=== PATIENT | male | born 1975 | race Caucasian/White ===

== ENCOUNTER 2017-05-01 06:30 | Day surgery (SDC) | payer SELFPAY ==
[~2017-05-01 06:30] MED LIST: Lactated Ringers 1,000 ML IV SCH; Sodium Chloride 0.9% 10 ML Syringe FLUSH PRN; Sodium Chloride 0.9% 2.5 ML Syringe FLUSH PRN; ceFAZolin 2 GM in Premix Bag 1 BAG IV ONE
[2017-05-01] MEDS ORDERED: ceFAZolin 1 GM Vial ONE (07:08)
[2017-05-01] MEDS ORDERED: fentaNYL 100 MCG/2 ML SDV ONE (07:08)
[2017-05-01] MEDS ORDERED: Midazolam 1 MG/ML 2 ML SDV ONE ×2 (07:08→07:48)
[2017-05-01] MEDS ORDERED: Propofol 200 MG/20 ML SDV ONE (07:09)
[2017-05-01] MEDS ORDERED: Lidocaine 1% 20 ML MDV ONE (07:16)
[2017-05-01] MEDS ORDERED: Bupivacaine 0.5% 30 ML SDV ONE (07:16)
--- NOTE | 2017-05-01 07:31 | PCM.PREANE ---
Preanesthetic Assessment - Anesthesia/Transfusion/Family Hx Anesthesia History: No Prior Anesthesia Family History of Anesthesia Reaction: No Transfusion History: No Prior Transfusion(s) - Review of Systems General: No Symptoms Pulmonary: No Symptoms Cardiovascular: No Symptoms Gastrointestinal: No Symptoms Neurological: No Symptoms Other: Reports: None - Physical Assessment NPO Status Date: 04/30/17 NPO Status Time: 23:30 O2 Sat by Pulse Oximetry: 98 Respiratory Rate: 16 Vital Signs: Last Vital Signs Temp 36.2 C 05/01/17 07:09 Pulse 50 L 05/01/17 07:09 Resp 16 05/01/17 07:09 BP 117/72 05/01/17 07:09 Pulse Ox 98 05/01/17 07:09 Height: 1.91 m Weight: 134.263 kg ASA Class: 2 Mental Status: Alert & Oriented x3 Airway Class: Mallampati = 2 Dentition: Reports: Normal Dentition ROM/Head Extension: Full Lungs: Clear to Auscultation, Normal Respiratory Effort - Allergies Allergies/Adverse Reactions: Allergies Allergy/AdvReac Type Severity Reaction Status Date / Time No Known Allergies Allergy Verified 04/29/17 13:30 - Anesthesia Plan Pre-Op Medication Ordered: None - Acknowledgements Anesthesia Type Planned: MAC Pt an Appropriate Candidate for the Planned Anesthesia: Yes Alternatives and Risks of Anesthesia Discussed w Pt/Guardian: Yes Pt/Guardian Understands and Agrees with Anesthesia Plan: Yes PreAnesthesia Questionnaire HEENT History: Reports: Other (See Below) Other HEENT History: wears contacts Cardiovascular History: Reports: Hypertension, Other (See Below) Other Cardiovascular History: states high BP in the past, has lost weight and no longer has Respiratory History: Reports: Other (See Below) Other Respiratory History: states has lost weight and not longer has sleep apnea Gastrointestinal History: Reports: Other (See Below) Other Gastrointestinal History: occasional heartburn Musculoskeletal History: Reports: Back Pain, Chronic Endocrine/Metabolic History: Reports: Obesity/BMI 30+ Dermatologic History: Reports: Other (See Below) Other Dermatologic History: cyst to posterior neck - Past Surgical History Head Surgeries/Procedures: Reports: None - SUBSTANCE USE Smoking Status *Q: Former Smoker Tobacco Use Within Last Twelve Months: No Recreational Drug Use History: No - HOME MEDS Home Medications: Home Meds . [No Known Home Meds] 04/29/17 [History] - CURRENT (IN HOUSE) MEDS Current Meds: Current Medications Lactated Ringer's (Ringers, Lactated) 1,000 mls @ 125 mls/hr IV ASDIRECTED LINDSAY Last Admin: 05/01/17 07:10 Dose: 125 mls/hr Sodium Chloride (Saline Flush) 10 ml FLUSH ASDIRECTED PRN PRN Reason: Keep Vein Open Sodium Chloride (Saline Flush) 2.5 ml FLUSH ASDIRECTED PRN PRN Reason: Keep Vein Open Discontinued Medications Bupivacaine HCl (Marcaine 0.5%) Confirm Administered Dose 30 ml .ROUTE .STK-MED ONE Stop: 05/01/17 07:17 Cefazolin Sodium (Ancef) Confirm Administered Dose 2 gm .ROUTE .STK-MED ONE Stop: 05/01/17 07:09 Fentanyl (Sublimaze) Confirm Administered Dose 100 mcg .ROUTE .STK-MED ONE Stop: 05/01/17 07:09 Cefazolin Sodium/Dextrose 2 gm (/ Premix) 50 mls @ 100 mls/hr IV ONETIME ONE Stop: 04/30/17 13:09 Lidocaine HCl (Xylocaine 1%) Confirm Administered Dose 20 ml .ROUTE .STK-MED ONE Stop: 05/01/17 07:17 Midazolam HCl (Versed 1 Mg/Ml) Confirm Administered Dose 2 mg .ROUTE .STK-MED ONE Stop: 05/01/17 07:09 Propofol (Diprivan 20 Ml) Confirm Administered Dose 200 mg .ROUTE .STK-MED ONE Stop: 05/01/17 07:10
[2017-05-01] MEDS ORDERED: Lidocaine 2% 5 ML SDV ONE (08:01)
[2017-05-01] MEDS ORDERED: fentaNYL 100 MCG/2 ML SDV IVPUSH PRN (08:06)
[2017-05-01] MEDS ORDERED: Ondansetron 4 MG/2 ML SDV ONE (08:14)
--- NOTE | 2017-05-01 08:23 | PCM.OPNOTE ---
- General Post-Op/Procedure Note Date of Surgery/Procedure: 05/01/17 Operative Procedure(s): Excision posterior neck lesion Findings: 1.5 x 1 x 0.5 cm elliptical incision made over previous site of infection where supposed sebaceous neck cyst. Pre Op Diagnosis: Posterior neck lesion Post-Op Diagnosis: same Anesthesia Technique: Local Primary Surgeon: Diann Gil Condition: Good
--- NOTE | 2017-05-01 08:56 | PCM48HPAN ---
Post Anesthesia Note - EVALUATION WITHIN 48HRS OF ANESTHETIC Vital Signs in Normal Range: Yes Patient Participated in Evaluation: Yes Respiratory Function Stable: Yes Airway Patent: Yes Cardiovascular Function Stable: Yes Hydration Status Stable: Yes Pain Control Satisfactory: Yes Nausea and Vomiting Control Satisfactory: Yes Mental Status Recovered: Yes
--- NOTE | 2017-05-01 08:56 | PCM.POSTAN ---
POST ANESTHESIA ASSESSMENT - MENTAL STATUS Mental Status: Alert, Oriented - RESPIRATORY Respiratory Status: Respiratory Rate WNL, Airway Patent, O2 Saturation Stable - CARDIOVASCULAR CV Status: Pulse Rate WNL, Blood Pressure Stable - GASTROINTESTINAL GI Status: No Symptoms - POST OP HYDRATION Hydration Status: Adequate & Stable
--- NOTE | 2017-05-01 09:42 | OR ---
SURGEON: JAMES SAMUELS MD DATE OF PROCEDURE: 05/01/2017 PREOPERATIVE DIAGNOSIS: Posterior neck lesion. POSTOPERATIVE DIAGNOSIS: Posterior neck lesion. PROCEDURE PERFORMED: Excision of posterior neck lesion. ANESTHESIA: Monitored anesthesia care, local. ESTIMATED BLOOD LOSS: 3 mL. FINDINGS: A 1.5 x 1 x 0.5 cm elliptical piece of skin excised containing a thickened area of tissue consistent with previous ruptured sebaceous cyst. COMPLICATIONS: None. INDICATIONS: The patient is a 41-year-old male, who came to see me in clinic several months ago after developing an inflamed area on the back of his neck. This spontaneously drained purulent material. His history was consistent with that of a sebaceous cyst. The wound initially healed, but then the patient began to note increased swelling around the area. On exam, the patient had a firm nodule in the area of the previous inflammation. The patient would like to have this lesion removed given that it is recurrent. The patient and I discussed excising this and closing it primarily. We discussed the procedure as well as expected perioperative course. We discussed the risks, including bleeding, infection, or damage to surrounding structures. The patient verbalized understanding and wishes to proceed. PROCEDURE IN DETAIL: The patient was brought into the operating room and placed in the left lateral decubitus position. A time-out was completed verifying the patient's name, age, date of , allergies, and procedure to be performed. Monitored anesthesia care was induced. The posterior neck was prepped and draped in usual standard fashion. The area around the posterior neck lesion was anesthetized with 1% lidocaine plain. An elliptical skin incision was made along the skin lines to encompass the lesion. Cautery was used to dissect down to the subcutaneous fat and the lesion was then undermined. A 1.5 x 1 x 0.5 cm piece of skin was removed and sent to pathology labeled as posterior neck lesion. The wound was irrigated with normal saline and cautery used to achieve hemostasis. The skin was then palpated and no further areas of thickening or nodularity were noted. The skin was closed with interrupted 3-0 Vicryl within the subcutaneous space and a running 4-0 Monocryl suture in the subcuticular space. Steri-Strips and sterile dressings were applied. The patient tolerated the procedure well and was taken to PACU in stable condition. ASIF TAYLOR /[id number] MTDShefali
[2017-05-01 12:30] VITALS: BP 126/81
== END 2017-05-01 09:10 | disposition home or self-care (01) ==
LOC: MW.SDS 06:30
PROVIDERS: ATTEND Surgery
DX: L90.5 Scar conditions and fibrosis of skin (principal); L08.89 Other specified local infections of the skin and subcutaneous tissue; G47.33 Obstructive sleep apnea (adult) (pediatric); I10 Essential (primary) hypertension; E66.9 Obesity, unspecified; Z87.891 Personal history of nicotine dependence; Z98.890 Other specified postprocedural states; Z68.36 Body mass index [BMI] 36.0-36.9, adult
CPT/HCPCS: 11422; J0690; J2250; J2405; J3010; J7120; 00300; 88304; J2704

== ENCOUNTER 2017-05-08 11:20 | Emergency (ER) | payer SELFPAY ==
--- NOTE | 2017-05-08 12:02 | EDM.PDOC ---
ED HPI GENERAL MEDICAL PROBLEM - General Chief Complaint: Wound Recheck Stated Complaint: NECK PAIN Time Seen by Provider: 05/08/17 11:23 Source of Information: Reports: Patient History Limitations: Reports: No Limitations - History of Present Illness INITIAL COMMENTS - FREE TEXT/NARRATIVE: History of present illness: []Patient had a cyst excised from his posterior neck [address] Gil. Yesterday the wound opened and he was told by her office to come to the ER to have Dr. White check his wound in between her surgical cases this morning. Review of systems: As per history of present illness and below otherwise all systems reviewed and negative. Past medical history: As per history of present illness and as reviewed below otherwise noncontributory. Surgical history: As per history of present illness and as reviewed below otherwise noncontributory. Social history: No reported history of drug or alcohol abuse. Family history: As per history of present illness and as reviewed below otherwise noncontributory. Physical exam: General: Well developed, well nourished in NAD HEENT: Atraumatic, normocephalic, pupils reactive, negative for conjunctival pallor or scleral icterus, mucous membranes moist, throat clear, neck- 1.5 cm posterior neck wound that is open and dry, there is no surrounding fluctuance, erythema or purulent or serous drainage from the wound, nontender, trachea midline. Lungs: Clear to auscultation, breath sounds equal bilaterally, chest nontender. Heart: S1S2, regular, negative for clicks, rubs, or JVD. Abdomen: Soft, nondistended, nontender. Negative for masses or hepatosplenomegaly. Negative for costovertebral tenderness. Pelvis: Stable nontender. Genitourinary: Deferred. Rectal: Deferred. Extremities: Atraumatic, negative for cords or calf pain. Neurovascular unremarkable. Neuro: Awake, alert, oriented. Cranial nerves II through XII unremarkable. Cerebellum unremarkable. Motor and sensory unremarkable throughout. Exam nonfocal. Diagnostics: [] Therapeutics: [] Impression: []Wound dehiscence Plan: []Change Dry dressings daily follow-up as needed with Dr. White Definitive disposition and diagnosis as appropriate pending reevaluation and review of above. - Related Data Allergies Allergy/AdvReac Type Severity Reaction Status Date / Time No Known Allergies Allergy Verified 05/08/17 11:21 Home Meds: Home Meds . [No Known Home Meds] 04/29/17 [History] Past Medical History - Past Health History Medical/Surgical History: Denies Medical/Surgical History HEENT History: Reports: Other (See Below) Other HEENT History: wears contacts Cardiovascular History: Reports: Hypertension, Other (See Below) Other Cardiovascular History: states high BP in the past, has lost weight and no longer has Respiratory History: Reports: Other (See Below) Other Respiratory History: states has lost weight and not longer has sleep apnea Gastrointestinal History: Reports: Other (See Below) Other Gastrointestinal History: occasional heartburn Musculoskeletal History: Reports: Back Pain, Chronic Endocrine/Metabolic History: Reports: Obesity/BMI 30+ Dermatologic History: Reports: Other (See Below) Other Dermatologic History: cyst to posterior neck - Past Surgical History Head Surgeries/Procedures: Reports: None Social & Family History - Family History Family Medical History: Noncontributory - Tobacco Use Smoking Status *Q: Never Smoker Used Tobacco, but Quit: Yes Month Tobacco Last Used: quit smoking 2 yrs ago - Recreational Drug Use Recreational Drug Use: No ED ROS GENERAL - Review of Systems Review Of Systems: See Below (See history of present illness) ED EXAM, SKIN/RASH Exam: See Below (See history of present illness) Course - Vital Signs Last Recorded V/S: Last Vital Signs Temp 36.4 C 05/08/17 11:20 Pulse 59 L 05/08/17 11:20 Resp 18 05/08/17 11:20 BP 152/87 H 05/08/17 11:20 Pulse Ox 96 05/08/17 11:20 Departure - Departure Time of Disposition: 12:00 Disposition: Home, Self-Care 01 Condition: Good Clinical Impression: Surgical wound dehiscence Qualifiers: Encounter type: initial encounter Qualified Code(s): T81.31XA - Disruption of external operation (surgical) wound, not elsewhere classified, initial encounter - Discharge Information Referrals: Chandana Quintero MD [Primary Care Provider] - Forms: ED Department Discharge Additional Instructions: The following information is given to patients seen in the emergency department who are being discharged to home. This information is to outline your options for follow-up care. We provide all patients seen in our emergency department with a follow-up referral. The need for follow-up, as well as the timing and circumstances, are variable depending upon the specifics of your emergency department visit. If you don't have a primary care physician on staff, we will provide you with a referral. We always advise you to contact your personal physician following an emergency department visit to inform them of the circumstance of the visit and for follow-up with them and/or the need for any referrals to a consulting specialist. The emergency department will also refer you to a specialist when appropriate. This referral assures that you have the opportunity for follow-up care with a specialist. All of these measure are taken in an effort to provide you with optimal care, which includes your follow-up. Under all circumstances we always encourage you to contact your private physician who remains a resource for coordinating your care. When calling for follow-up care, please make the office aware that this follow-up is from your recent emergency room visit. If for any reason you are refused follow-up, please contact the [facility] Emergency Department at and asked to speak to the emergency department charge nurse. Change dry dressing daily, return if any symptoms change or worsening including fevers, drainage from the wound or increasing pain. Follow up with surgery as needed
[2017-05-08 12:51] VITALS: BP 142/94
== END 2017-05-08 12:00 | disposition home or self-care (01) ==
LOC: MW.ED 11:20
DX: T81.31XA Disruption of external operation (surgical) wound, not elsewhere classified, initial encounter (principal); I10 Essential (primary) hypertension; E66.9 Obesity, unspecified; Z87.891 Personal history of nicotine dependence; Z98.890 Other specified postprocedural states; Z68.36 Body mass index [BMI] 36.0-36.9, adult
CPT/HCPCS: 99282

== ENCOUNTER 2020-04-13 16:33 | Emergency (ER) | payer SELFPAY ==
--- NOTE | 2020-04-13 18:23 | CR ---
Left thumb: 3 views of the left thumb were obtained. Comparison: No prior thumb study. Joint spaces are preserved. Minimal opacity is seen on one view next to the mid first metatarsal most likely artifact. Small bony exostosis is noted off the distal and dorsal proximal phalanx compatible with old injury. No acute fracture, dislocation or other bony abnormality is appreciated. Impression: 1. Findings believed to be incidental as noted above. 2. No acute bony abnormality is appreciated. Diagnostic code #2 This report was dictated in MDT
--- NOTE | 2020-04-13 19:41 | EDM.PDOC ---
ED HPI GENERAL MEDICAL PROBLEM - General Chief Complaint: Laceration Stated Complaint: LT THUMB LACERATION Time Seen by Provider: 04/13/20 19:00 Source of Information: Reports: Patient History Limitations: Reports: No Limitations - History of Present Illness INITIAL COMMENTS - FREE TEXT/NARRATIVE: HISTORY AND PHYSICAL: History of present illness: Patient is a 44-year-old male who presents to the ED today with concern of right hand thumb laceration that occurred just prior to arrival to the ED. Patient states he was using a hand saw when he caught his thumb on the saw. Patient states that he has been able to move it since but does have pain with moving it. Patient states that the blood made him feel queasy and lightheaded but denies any other symptoms. Patient states he is up-to-date on his tetanus. Patient denies fever, chills, chest pain, shortness of breath, or cough. Denies headache, neck stiff ness, change in vision, syncope, or near syncope. Denies nausea, vomiting, abdominal pain, diarrhea, constipation, or dysuria. Has not noted any blood in urine or stool. Patient has been eating and drinking appropriately. Review of systems: As per history of present illness and below otherwise all systems reviewed and negative. Past medical history: As per history of present illness and as reviewed below otherwise noncontributory. Surgical history: As per history of present illness and as reviewed below otherwise noncontributory. Social history: See social history for further information Family history: As per history of present illness and as reviewed below otherwise noncontributory. Physical exam: General: Patient is alert, oriented, and in no acute distress. Patient sitting comfortably on exam table. HEENT: Atraumatic, normocephalic, pupils equal and reactive bilaterally, negative for conjunctival pallor or scleral icterus, mucous membranes moist, TMs normal bilaterally, throat clear, neck supple, nontender, trachea midline. No drooling or trismus noted. No meningeal signs. No hot potato voice noted. Lungs: Clear to auscultation, breath sounds equal bilaterally, chest nontender. Heart: S1S2, regular rate and rhythm without overt murmur Abdomen: Soft, nondistended, nontender. Negative for masses or hepatosplenomegaly. Negative for costovertebral tenderness. Pelvis: Stable nontender. Genitourinary: Deferred. Rectal: Deferred. Skin: Intact, warm, dry. No lesions or rashes noted. Extremities: There is a 2cm subcutaneous laceration over the mid dorsum 1st digit of the RUE. Patinet does have full ROM of the digit without deficit. Radial pulse grossly intact with cap refill <2 seconds. Otherwise, Atraumatic, negative for cords or calf pain. Neurovascular unremarkable. Neuro: Awake, alert, oriented. Cranial nerves II through XII unremarkable. Cerebellum unremarkable. Motor and sensory unremarkable throughout. Exam nonfocal. Notes: Discussed importance for follow-up with primary care provider. Voices understanding and is agreeable to plan of care. Denies any further questions or concerns at this time. Diagnostics: Hand x-ray Therapeutics: Lidocaine, sutures Prescription: None Impression: Thumb laceration, right Plan: 1. Keep the area clean and dry. Continue to monitor for signs of infection as discussed. Sutures to be removed in 7-10 days. 2. Tylenol and/or ibuprofen as directed and as needed for pain management and discomfort. 3. Please follow-up with your primary care provider as discussed. Return to the ED as needed and as discussed. Definitive disposition and diagnosis as appropriate pending reevaluation and review of above. Left Finger-Thumb Pain Score (Numeric/FACES): 6 - Related Data Allergies Allergy/AdvReac Type Severity Reaction Status Date / Time No Known Allergies Allergy Verified 04/13/20 17:29 Home Meds: Home Meds . [No Known Home Meds] 04/29/17 [History] Past Medical History - Past Health History Medical/Surgical History: Denies Medical/Surgical History HEENT History: Reports: None, Other (See Below) Other HEENT History: wears contacts Cardiovascular History: Reports: Hypertension, Other (See Below) Other Cardiovascular History: states high BP in the past, has lost weight and no longer has Respiratory History: Reports: Sleep Apnea Other Respiratory History: states has lost weight and not longer has sleep apnea Gastrointestinal History: Reports: Other (See Below) Other Gastrointestinal History: occasional heartburn Genitourinary History: Reports: None Musculoskeletal History: Reports: Back Pain, Chronic Neurological History: Reports: None Psychiatric History: Reports: None Endocrine/Metabolic History: Reports: Obesity/BMI 30+ Hematologic History: Reports: None Immunologic History: Reports: None Oncologic (Cancer) History: Reports: None Dermatologic History: Reports: Other (See Below) Other Dermatologic History: cyst to posterior neck - Infectious Disease History Infectious Disease History: Reports: None - Past Surgical History Head Surgeries/Procedures: Reports: None Social & Family History - Family History Family Medical History: Noncontributory - Tobacco Use Smoking Status *Q: Current Every Day Smoker Years of Tobacco use: 1 Packs/Tins Daily: 0.5 - Recreational Drug Use Recreational Drug Use: Yes Drug Use in Last 12 Months: Yes Recreational Drug Type: Reports: Marijuana/Hashish Recreational Drug Use Frequency: Weekly ED ROS GENERAL - Review of Systems Review Of Systems: Comprehensive ROS is negative, except as noted in HPI. ED EXAM, SKIN/RASH Exam: See Below (see dictation) ED SKIN PROCEDURES - Laceration/Wound Repair Left Dorsal Digit - 1st (Thumb) Appearance: Subcutaneous, Linear, Clean Distal NVT: Neuro & Vascular Intact, No Tendon Injury Anesthetic Type: Local Local Anesthesia - Lidocaine (Xylocaine): 1% Plain Local Anesthetic Volume: 3cc Skin Prep: Chlorhexidine (Hibiciens), Providone-Iodine (Betadine), Saline Saline Irrigation (cc's): 150 Exploration/Debridement/Repair: Wound Explored, In a Bloodless Field, Explored to Base, No Foreign Material Found Closed with: Sutures Lac/Wound length In cm: 2 Suture Size: 4-0 # of Sutures: 4 Suture Type: Silk, Interrupted Drain Placement: No Sterile Dressing Applied: Nurse Tetanus Status Addressed: Yes (up to date) Complications: No Course - Vital Signs Last Recorded V/S: Last Vital Signs Temp 97.9 F 04/13/20 17:27 Pulse 64 04/13/20 17:27 Resp 16 04/13/20 17:27 BP 162/78 H 04/13/20 17:27 Pulse Ox 99 04/13/20 17:27 - Orders/Labs/Meds Meds: Medications Discontinued Medications Generic Name Dose Route Start Last Admin Trade Name Freq PRN Reason Stop Dose Admin Lidocaine HCl 5 ml 04/13/20 19:38 04/13/20 19:52 Xylocaine-Mpf 1% INJECT 04/13/20 19:39 5 ml ONETIME ONE Administration Departure - Departure Time of Disposition: 21:09 Disposition: Home, Self-Care 01 Clinical Impression: Thumb laceration Qualifiers: Encounter type: initial encounter Damage to nail status: without damage Foreign body presence: without foreign body Laterality: right Qualified Code(s): S61.011A - Laceration without foreign body of right thumb without damage to nail, initial encounter - Discharge Information Instructions: Laceration Care, Adult Referrals: PCP,None [Primary Care Provider] - Forms: ED Department Discharge Additional Instructions: The following information is given to patients seen in the emergency department who are being discharged to home. This information is to outline your options for follow-up care. We provide all patients seen in our emergency department with a follow-up referral. The need for follow-up, as well as the timing and circumstances, are variable depending upon the specifics of your emergency department visit. If you don't have a primary care physician on staff, we will provide you with a referral. We always advise you to contact your personal physician following an emergency department visit to inform them of the circumstance of the visit and for follow-up with them and/or the need for any referrals to a consulting specialist. The emergency department will also refer you to a specialist when appropriate. This referral assures that you have the opportunity for follow-up care with a specialist. All of these measure are taken in an effort to provide you with optimal care, which includes your follow-up. Under all circumstances we always encourage you to contact your private physician who remains a resource for coordinating your care. When calling for follow-up care, please make the office aware that this follow-up is from your recent emergency room visit. If for any reason you are refused follow-up, please contact the [facility] Emergency Department at and asked to speak to the emergency department charge nurse. [facility] Primary Care [address] [place] [address] [id number] [address] [id number] 1. Keep the area clean and dry. Continue to monitor for signs of infection as discussed. Sutures to be removed in 7-10 days. 2. Tylenol and/or ibuprofen as directed and as needed for pain management and discomfort. 3. Please follow-up with your primary care provider as discussed. Return to the ED as needed and as discussed. Sepsis Event Note (ED) - Evaluation Sepsis Screening Result: No Definite Risk - Focused Exam Vital Signs: Vital Signs Temp Pulse Resp BP Pulse Ox 04/13/20 17:27 97.9 F 64 16 162/78 H 99
[2020-04-13 21:19] VITALS: BP 127/75; PULSE 63
== END 2020-04-13 21:16 | disposition home or self-care (01) ==
LOC: MW.ED 16:33
DX: S61.011A Laceration without foreign body of right thumb without damage to nail, initial encounter (principal); I10 Essential (primary) hypertension; E66.9 Obesity, unspecified; Z68.37 Body mass index [BMI] 37.0-37.9, adult; F17.210 Nicotine dependence, cigarettes, uncomplicated; W27.0XXA Contact with workbench tool, initial encounter
CPT/HCPCS: 12001; 73140; 99283; J2001; 99282

== ENCOUNTER 2020-12-22 12:02 | Day surgery (SDC) | payer OTHER ==
[2020-12-22] MEDS ORDERED: Lidocaine 2% 5 ML SDV INJECT ONE (13:00)
[2020-12-22] MEDS ORDERED: Betamethasone Acetate/Betamethasone Sod Phosphate 30 MG/5 ML MDV EPIDUR ONE (13:00)
[2020-12-22] MEDS ORDERED: Ropivacaine 0.5% 5 MG/ML 30 ML SDV INJECT ONE (13:00)
[2020-12-22] MEDS ORDERED: Iopamidol 200-M 10 ML vial ITHECAL ONE (13:00)
--- NOTE | 2020-12-23 00:24 | OR ---
SURGEON: Matilde Luu D.O. DATE OF PROCEDURE: 12/22/2020 PRIMARY SURGEON: Matilde Luu D.O. BOLT SAWYER: OR staff present: 1. Kristin Kumar RN. 2. Vitaly Miller RN. 3. Chaim Franco RT. WOUND CLASS: I. PREOPERATIVE DIAGNOSES: 1. Lumbar degenerative disk disease, L4-5, L5-S1. 2. Lumbar spondylosis. 3. Chronic low back pain. POSTOPERATIVE DIAGNOSES: 1. Lumbar degenerative disk disease, L4-5, L5-S1. 2. Lumbar spondylosis. 3. Chronic low back pain. PROCEDURES PERFORMED: 1. Right S1 transforaminal epidural steroid injection. 2. Left S1 transforaminal epidural steroid injection. 3. Fluoroscopic guidance for needle placement. 4. Local with oral Valium for sedation. SCREENING QUESTIONS: The patient answered "no" to all of the following questions: 1. Are you allergic to iodine, Betadine or latex? 2. Do you have a bleeding disorder? 3. Do you have any joint replacements, heart valve replacements, or a pacemaker? 4. Are you allergic to anti-inflammatories or blood thinners? 5. Do you have any current local or systemic infections? DESCRIPTION OF PROCEDURE: The patient had the procedure thoroughly explained including risks, benefits and alternatives. Consent was signed in my clinic indicating understanding and willingness to proceed. The patient presented to [facility] where the patient was escorted to the dressing room to disrobe and change into a hospital gown. Preoperative vital signs were taken and stable. The patient reported that Valium was taken prior to the procedure. The patient was brought to the procedure room and placed in the prone position on the table. A pillow was placed under the abdomen in order to flatten the lumbar lordosis. The back was prepped with ChloraPrep and sterilely draped. All personnel in the operating room were dressed in appropriate attire including surgical scrubs, head and shoe covers. This was to ensure sterility while in the treatment room. During the time fluoroscopy was in use, all personnel in the operating room wore lead licea with thyroid collars. Sterile technique was used during the procedure. The fluoroscope was placed for the right and left S1 transforaminal epidural steroid injection. There was no sign of infection at the skin sites for needle insertion. The skin was anesthetized with 2% lidocaine with a 27 gauge 1-1/2 inch needle. Then a 22 gauge 3-1/2 inch spinal needle, advanced to the right and left S1 foramen. Under direct fluoroscopic guidance needle position was verified in three views; AP, oblique and lateral, with 0.2 cubic centimeters increments of Isovue-200 dye. No intravascular flow pattern was observed under live fluoroscopy . Then 6 milligrams of Celestone and local was slowly injected after negative aspiration of heme, cerebrospinal fluid and no paresthesias were noted at each site. The needle was cleared prior to removal from the skin. No adverse reactions were noted. The patient was brought to the recovery room awake and in good condition by my staff. The patient was monitored and discharge instructions were given after a brief stay in the recovery area. Both oral and written discharge and follow up instructions were given. The patient will follow up in the clinic in 3-4 weeks post procedure to evaluate the efficacy. The patient verbalized understanding including understanding of those signs and symptoms that would require emergency care and knows how to contact the office if there are any problems or questions in the meantime. PREOPERATIVE PAIN: 01/26. POSTOPERATIVE PAIN: 08/28. PLAN: Follow up in the pain clinic in 3 weeks. HOGDERRELLHR / DIONEL /[id number] BERNARD
== END 2020-12-22 13:32 ==
LOC: MW.SDS 12:02
PROVIDERS: ATTEND Anesthesiology
DX: G89.29 Other chronic pain (principal); M51.16 Intervertebral disc disorders with radiculopathy, lumbar region; M51.17 Intervertebral disc disorders with radiculopathy, lumbosacral region; M47.26 Other spondylosis with radiculopathy, lumbar region; M47.27 Other spondylosis with radiculopathy, lumbosacral region; M48.061 Spinal stenosis, lumbar region without neurogenic claudication; M53.3 Sacrococcygeal disorders, not elsewhere classified; Z79.899 Other long term (current) drug therapy; Z87.891 Personal history of nicotine dependence

== ENCOUNTER 2021-03-30 11:16 | Emergency (ER) | payer SELFPAY ==
--- NOTE | 2021-03-30 13:16 | EDM.PDOC ---
ED HPI GENERAL MEDICAL PROBLEM - General Chief Complaint: Laceration Stated Complaint: CUT RIGHT HAND Time Seen by Provider: 03/30/21 11:27 Source of Information: Reports: Patient History Limitations: Reports: No Limitations - History of Present Illness INITIAL COMMENTS - FREE TEXT/NARRATIVE: HISTORY AND PHYSICAL: History of present illness: Patient is a 45-year-old male who presents emergency room today with concern of right hand laceration that occurred just prior to arrival to the emergency room. Patient states that he believes to be up-to-date on his tetanus vaccine within 5 years as he has had multiple sutures in the past. Patient states that he was replacing a cover to an outlet and states that he was putting on metal outlets when his hand slipped and was sliced by the metal outlet. Patient states he applied pressure to the area and immediately came to the emergency room. Patient states that he has also had a "cold "and states that he has had a stuffy/runny nose for the past 2 to 3 days. Patient denies any other symptoms or concerns. Patient denies fever, chills, chest pain, shortness of breath, or cough. Denies headache, neck stiff ness, change in vision, syncope, or near syncope. Denies nausea, vomiting, abdominal pain, diarrhea, constipation, or dysuria. Has not noted any blood in urine or stool. Patient has been eating and drinking appropriately. Review of systems: As per history of present illness and below otherwise all systems reviewed and negative. Past medical history: As per history of present illness and as reviewed below otherwise noncontributory. Surgical history: As per history of present illness and as reviewed below otherwise noncontributory. Social history: See social history for further information Family history: As per history of present illness and as reviewed below otherwise noncontributory. Physical exam: General: Patient is alert, oriented, and in no acute distress. Patient sitting comfortably on exam table. Vitals stable and reviewed by me. HEENT: Bilateral nasal congestion. Atraumatic, normocephalic, pupils equal and reactive bilaterally, negative for conjunctival pallor or scleral icterus, m ucous membranes moist, TMs normal bilaterally, throat clear, neck supple, nontender, trachea midline. No drooling or trismus noted. No meningeal signs. No hot potato voice noted. Lungs: Clear to auscultation, breath sounds equal bilaterally, chest nontender. Heart: S1S2, regular rate and rhythm without overt murmur Abdomen: Soft, nondistended, nontender. Negative for masses or hepatosplenomegaly. Negative for costovertebral tenderness. Pelvis: Stable nontender. Genitourinary: Deferred. Rectal: Deferred. Skin: Intact, warm, dry. No lesions or rashes noted. Extremities: There is a 6 cm laceration of the right proximal lateral palmar aspect of hand that is through the subcutaneous tissue and down to the muscle but does not involve the muscle. Patient has full range of motion of all digits of the right upper extremity as well as the wrist without deficit. The laceration does have hemostasis. Radial pulses grossly intact of the right upper extremity with capillary refill less than 2 seconds. Patient has intact sensation to light and deep touch of all digits of the right upper extremity. Otherwise, patient has atraumatic, negative for cords or calf pain. Neurovascular unremarkable. Neuro: Awake, alert, oriented. Cranial nerves II through XII unremarkable. Cerebellum unremarkable. Motor and sensory unremarkable throughout. Exam nonfocal. Notes: Patient does have bilateral nasal congestion and would like to test for COVID-19 today. Given that patient does have a deep mildly contaminated wound, will place on Augmentin for prophylaxis. Signs and symptoms that were prompt return to the ED thoroughly discussed with patient. Discussed importance for follow-up with a primary care provider. Voices understanding and is agreeable to plan of care. Denies any further questions or concerns at this time. Diagnostics: COVID-19 (I did offer a hand x-ray to rule out foreign body, however, patient declines at this time) Therapeutics: Lidocaine, sutures, sterile dressing placed by nursing staff Prescription: Augmentin Impression: Hand laceration, right Rhinitis, acute Plan: 1. Keep the area clean and dry. Continue to monitor for signs of infection as discussed. Sutures to be removed in 7-10 days. 2. Tylenol and/or ibuprofen as directed and as needed for pain management and discomfort. Take medication as prescribed. 3. Please follow-up with your primary care provider as discussed. Return to the ED as needed and as discussed. Definitive disposition and diagnosis as appropriate pending reevaluation and review of above. Right Hand Pain Score (Numeric/FACES): 5 - Related Data Allergies Allergy/AdvReac Type Severity Reaction Status Date / Time No Known Allergies Allergy Verified 03/30/21 11:51 Home Meds: Home Meds Amoxicillin/Potassium Clav [Augmentin 875-125 Tablet] 1 each PO BID 7 Days #14 tablet 03/30/21 [Rx] Past Medical History - Past Health History Medical/Surgical History: Denies Medical/Surgical History HEENT History: Reports: None, Other (See Below) Other HEENT History: wears contacts Cardiovascular History: Reports: Hypertension, Other (See Below) Other Cardiovascular History: states high BP in the past, has lost weight and no longer has Respiratory History: Reports: Sleep Apnea Other Respiratory History: states has lost weight and not longer has sleep apnea Gastrointestinal History: Reports: Other (See Below) Other Gastrointestinal History: occasional heartburn Genitourinary History: Reports: None Musculoskeletal History: Reports: Back Pain, Chronic Neurological History: Reports: None Psychiatric History: Reports: None Endocrine/Metabolic History: Reports: Obesity/BMI 30+ Hematologic History: Reports: None Immunologic History: Reports: None Oncologic (Cancer) History: Reports: None Dermatologic History: Reports: Other (See Below) Other Dermatologic History: cyst to posterior neck - Infectious Disease History Infectious Disease History: Reports: None - Past Surgical History Head Surgeries/Procedures: Reports: None Social & Family History - Family History Family Medical History: No Pertinent Family History - Tobacco Use Tobacco Use Status *Q: Never Tobacco User - Caffeine Use Caffeine Use: Reports: None - Recreational Drug Use Recreational Drug Use: No ED ROS GENERAL - Review of Systems Review Of Systems: Comprehensive ROS is negative, except as noted in HPI. ED EXAM, SKIN/RASH Exam: See Below (see dictation) ED SKIN PROCEDURES - Laceration/Wound Repair Right Proximal Hand Appearance: Subcutaneous, Muscle (Does not cut through the muscle), Linear, Mildly Contaminated Distal NVT: Neuro & Vascular Intact, No Tendon Injury Anesthetic Type: Local Local Anesthesia - Lidocaine (Xylocaine): 1% Plain Local Anesthetic Volume: Other (10cc) Skin Prep: Chlorhexidine (Hibiciens), Saline Saline Irrigation (cc's): 500 Exploration/Debridement/Repair: Wound Explored, In a Bloodless Field, Explored to Base, No Foreign Material Found Closed with: Sutures Lac/Wound length In cm: 6 Suture Size: 4-0 # of Sutures: 13 Suture Type: Silk, Interrupted Drain Placement: No Sterile Dressing Applied: Nurse Tetanus Status Addressed: Yes (up to date) Complications: No Course - Vital Signs Last Recorded V/S: Last Vital Signs Temp 98 F 03/30/21 13:35 Pulse 85 03/30/21 13:35 Resp 18 03/30/21 13:35 BP 145/92 H 03/30/21 13:35 Pulse Ox 98 03/30/21 13:35 - Orders/Labs/Meds Labs: Laboratory Tests 03/30/21 Range/Units 12:20 SARS-CoV-2 RNA (ADRIANNE) NEGATIVE (NEGATIVE) Meds: Medications Discontinued Medications Generic Name Dose Route Start Last Admin Trade Name Tani PRN Reason Stop Dose Admin Lidocaine HCl 10 ml 03/30/21 12:00 03/30/21 12:19 Lidocaine 1% 5 Ml Sdv INJECT 03/30/21 12:01 10 ml ONETIME ONE Administration Departure - Departure Time of Disposition: 13:15 Disposition: Home, Self-Care 01 Clinical Impression: Laceration Rhinitis Qualifiers: Rhinitis type: acute Qualified Code(s): J00 - Acute nasopharyngitis [common cold] - Discharge Information Prescriptions: Amoxicillin/Potassium Clav [Augmentin 875-125 Tablet] 1 each PO BID 7 Days #14 tablet Instructions: Laceration Care, Adult Referrals: Dylan Arzate MD [Primary Care Provider] - Forms: ED Department Discharge Additional Instructions: The following information is given to patients seen in the emergency department who are being discharged to home. This information is to outline your options for follow-up care. We provide all patients seen in our emergency department with a follow-up referral. The need for follow-up, as well as the timing and circumstances, are variable depending upon the specifics of your emergency department visit. If you don't have a primary care physician on staff, we will provide you with a referral. We always advise you to contact your personal physician following an emergency department visit to inform them of the circumstance of the visit and for follow-up with them and/or the need for any referrals to a consulting specialist. The emergency department will also refer you to a specialist when appropriate. This referral assures that you have the opportunity for follow-up care with a specialist. All of these measure are taken in an effort to provide you with optimal care, which includes your follow-up. Under all circumstances we always encourage you to contact your private physician who remains a resource for coordinating your care. When calling for follow-up care, please make the office aware that this follow-up is from your recent emergency room visit. If for any reason you are refused follow-up, please contact the Emergency Department at and asked to speak to the emergency department charge nurse. Primary Care [address] [place] [address] [facility] [address] [place] [address] 1. Keep the area clean and dry. Continue to monitor for signs of infection as discussed. Sutures to be removed in 7-10 days. 2. Tylenol and/or ibuprofen as directed and as needed for pain management and discomfort. Take medication as prescribed. 3. Please follow-up with your primary care provider as discussed. Return to the ED as needed and as discussed. Sepsis Event Note (ED) - Focused Exam Vital Signs: Vital Signs Temp Pulse Resp BP Pulse Ox 03/30/21 13:35 98 F 85 18 145/92 H 98 03/30/21 11:53 98.9 F 91 18 165/111 H 99
[2021-03-30 13:52] VITALS: BP 145/92; PULSE 85
== END 2021-03-30 13:41 | disposition home or self-care (01) ==
LOC: MW.ED 11:16
DX: S61.411A Laceration without foreign body of right hand, initial encounter (principal); J00 Acute nasopharyngitis [common cold]; I10 Essential (primary) hypertension; E66.9 Obesity, unspecified; Z68.38 Body mass index [BMI] 38.0-38.9, adult; Z20.822 Contact with and (suspected) exposure to COVID-19; W26.8XXA Contact with other sharp object(s), not elsewhere classified, initial encounter
CPT/HCPCS: 12002; 99283; 99283-25; U0002